=== PATIENT | male | born 1950 | race Caucasian/White ===

== ENCOUNTER 2021-08-04 10:48 | Inpatient (IN) | payer OTHER ==
[~2021-08-04] VITALS: Ht 182.9 cm; Wt 103.8 kg
[2021-08-04] VITALS (11 sets, daily range): BP systolic 113–141; BP diastolic 53–73
[~2021-08-04 10:48] MED LIST: ACETAMINOPHEN325 M1 PO; ADVIL FLU & BO1 EACH PO; BACTRIM DS TAB1 EACH PO; COLACE 100 MG100 MG PO; HYDROCODON-ACE1 EACH PO; OXYBUTYNIN 5 MG5 M1 PO; PROSED-DS TABL1 EACH PO
[2021-08-04] MEDS ORDERED: TESTOSTERO30 MG/1.5 BUCCAL (11:22)
[2021-08-04] MEDS ORDERED: FLOMAX0.4 MG PO (11:22)
[2021-08-04] MEDS ORDERED: DICLOFENAC SOD50 MG PO (11:23)
[2021-08-04] MEDS ORDERED: FLEXERIL PO (11:23)
[2021-08-04] MEDS ORDERED: ROPINIROLE HCL0.5 MG PO (11:23)
[2021-08-04 14:48] LABS: ABSOLUTE NEUTROPHILS 3.9 thou/uL (1.4-8.2); BASOPHILS 0.8 % (0.0-2.0); EOSINOPHILS 0.8 % (0.0-3.0); HEMATOCRIT 44.5 % (42.0-52.0); HEMOGLOBIN 14.5 gm/dL (14.0-18.0); LYMPHOCYTES 25.4 % (24.0-44.0); MCH 30.6 pg (26.0-34.0); MCHC 32.5 g/dL (28.0-37.0); MONOCYTES 11.8 % (1.0-8.0); PLATELET COUNT 217 thou/uL (150-400); POLYS 61.2 % (36.0-66.0); RBC 4.73 mil/uL (4.50-6.00); RDW 14.4 % (10.5-14.5); WBC 6.4 thou/uL (4.0-11.0)
[2021-08-04 14:56] LABS: CALCIUM 8.5 mg/dL (8.5-10.1); POTASSIUM 4.4 mmol/L (3.5-5.1)
[2021-08-04 15:02] LABS: ALBUMIN 3.2 g/dL (3.4-5.0); APTT 26.6 Seconds (24.5-32.8); INR 1.06; PROTIME 11.5 Seconds (10.5-12.1); TOTAL BILIRUBIN 0.8 mg/dL (0.2-1.0); TOTAL PROTEIN 6.5 g/dL (6.4-8.2)
[2021-08-04 15:48] LABS: URINE BILIRUBIN NEGATIVE (Negative); URINE BLOOD NEGATIVE (Negative); URINE CLARITY CLEAR; URINE COLOR YELLOW; URINE GLUCOSE-RANDOM* NEGATIVE (Negative); URINE KETONES NEGATIVE (Negative); URINE LEUKOCYTES-REFLEX NEGATIVE (Negative); URINE NITRITE-REFLEX NEGATIVE (Negative); URINE PROTEIN (DIPSTICK) NEGATIVE (Negative)
[2021-08-04] MEDS ORDERED: XANAX 0.25 MG0.25 MG PO (15:56)
[2021-08-05 00:45] VITALS: BP 113/75
--- NOTE | 2021-08-05 03:51 | NUR ---
assumed pt care at 1900, alert and orientedx4, sron tele, denies chest pain, assessments as charted, R.groin site cdi, no hematoma, verified with cardiology the need for heparin gtt, no new orders, plan for cabg on tuesday, mupirocin started after mrsa swab, no needs at this time will continue to monitor per poc
[2021-08-05 04:06] LABS: GLYCOHEMOGLOBIN (HGB A1C) 5.5 % (4.8-5.6)
[2021-08-05 04:45] VITALS: BP 132/72
[2021-08-05 07:07] VITALS: BP 138/72
--- NOTE | 2021-08-05 09:06 | 2DMMODE ---
[facility] [place] [place] [address] 2 D/M-MODE ECHOCARDIOGRAM Name: MERI COLON Room #: 200-I ADM IN M.R.#: [id number] Admission: 08/04/21 Attend Phys: Will Wolfe MD, Discharge: Date of : 48 Report #: [id number] THIS REPORT FOR: cc: Thanh Luque Damon DO Lundgren, Craig H. MD [facility] ~ APPROVED REPORT Study performed: 08/05/2021 08:03:58 EXAM: Comprehensive 2D, Doppler, and color-flow Echocardiogram Patient Location: Bedside Room #: 200 Status: routine BSA: 2.26 HR: 57 bpm BP: 132/72 mmHg Rhythm: NSR Other Information Study Quality: Fair Indications NSTEMI. Pre-Op CABG. 2D Dimensions IVSd: 10.24 (7-11mm) LVOT Diam: 23.25 (18-24mm) LVDd: 49.73 mm PWd: 9.48 (7-11mm) LVDs: 41.53 (25-40mm) Left Atrium: 37.31 (27-40mm) Aortic Root: 36.32 mm Volumes Left Atrial Volume (Systole) Single Plane 4CH: 30.64 mL Single Plane 2CH: 31.88 mL LA ESV Index: 16.00 mL/m2 Aortic Valve AoV Peak Tony.: 1.02 m/s AO Peak Gr.: 4.18 mmHg LVOT Max P.26 mmHg LVOT Max V: 0.90 m/s RUKHSANA Vmax: 3.75 cm2 [facility] [address] [place] [address] 2 D/M-MODE ECHOCARDIOGRAM Name: MERI COLON Room #: 200-I [facility] IN R#: [id number] Admission: 08/04/21 Attend Phys: Will Wolfe, Discharge: Date of : 48 Report #: [id number] Mitral Valve E/A Ratio: 0.8 MV Decel. Time: 263.69 ms MV E Max Tony.: 0.49 m/s MV A Tony.: 0.61 m/s MV PHT: 76.47 ms IVRT: 96.89 ms Tricuspid Valve RAP Estimate: 5.00 mmHg Left Ventricle The left ventricle is normal size. Mild basal septal hypertrophy is present. Left ventricular systolic function is moderately decreased. LVEF 40%. Mid to distal septal, apical hypokinesis Mild diastolic dysfunction Right Ventricle The right ventricle is normal size. The right ventricular systolic function is normal. Atria The left atrium size is normal. The right atrium size is normal. Aortic Valve The aortic valve is not well visualized. No aortic regurgitation is present. There is no aortic valvular stenosis. Mitral Valve The mitral valve is normal in structure. There is no mitral valve regurgitation noted. No evidence of mitral valve stenosis. Tricuspid Valve The tricuspid valve is normal in structure. There is no tricuspid valve regurgitation noted. Unable to assess PA pressure. Pulmonic Valve Pulmonic valve is not well visualized. There is no pulmonic valvular regurgitation. Great Vessels The aortic root is normal in size. Ascending aorta is not well visualized. IVC is normal in size and collapses >50% with inspiration. [facility] [place] [address] [place] [address] 2 D/M-MODE ECHOCARDIOGRAM Name: MERI COLON Room #: 200-I ADM IN .R.#: [id number] Admission: 08/04/21 Attend Phys: Will Wolfe, Discharge: Date of : 48 Report #: [id number] Pericardium There is no pericardial effusion. <Conclusion> Left ventricular systolic function is moderately decreased. LVEF 40%. Mid to distal septal, apical hypokinesis Mild diastolic dysfunction The aortic valve is not well visualized. No aortic regurgitation or stenosis The mitral valve is normal in structure. No mitral valve regurgitation Unable to assess pulmonary artery pressure. There is no pericardial effusion. <ELECTRONICALLY SIGNED> By: Connor Holliday MD, [facility] 08/05/21905 5 Connor Holliday MD, FACC /INF
[2021-08-05 11:05] VITALS: BP 124/72
[2021-08-05 11:41] LABS: CALCIUM 8.7 mg/dL (8.5-10.1); POTASSIUM 3.9 mmol/L (3.5-5.1)
[2021-08-05 12:04] LABS: CHOLESTEROL 198 mg/dL (<200); HDL CHOLESTEROL 35 mg/dL (>40); LDL CHOLESTEROL 140 mg/dL (<100); TC:HDL 5.7 Ratio (Not establshd); TRIGLYCERIDE 119 mg/dL (<150); VLDL 24 mg/dL (<40)
[2021-08-05 15:12] VITALS: BP 124/69
--- NOTE | 2021-08-05 18:29 | NUR ---
Pt A&0x4, VS stable and afebrile throughout shift. Pt had an episode of chest pain/tightness at 0900. Pt was given 2 SL nitroglycerine tablets and placed on 2L O2. Nitorglycerine patch was ordered and applied to pts chest. Pt has been resting comfortably in bed for remainder of shift. Pt spoke with Dr. Mccallum and Jose in AM and discussed plan for open heart surgery on Tuesday. Pt's mynx dressing is clean dry and intact without hematoma. No concerns at the moment. Will continue to monitor.
[2021-08-05 20:31] VITALS: BP 123/64
[2021-08-06 05:33] VITALS: BP 133/72
--- NOTE | 2021-08-06 06:53 | NUR ---
ASSUME CARE 1900. PT/VITALS STABLE. DENEIS ANY PAIN. GOOD TOLERANCE TO ACTIVITY. ASSESSMENT CHARTED. PROGRESSING WELL WITH POC. NO DISTRESS NOTED THROUGH THE NIGHT. SR ON MONITOR. PLAN IS CABG ON Tuesday08/07/21. WILL CONITNUE TO MONITOR AND FOLLOW WITH POC
[2021-08-06 08:34] VITALS: BP 126/59
[2021-08-06 12:00] VITALS: BP 107/64
--- NOTE | 2021-08-06 13:02 | EKG ---
[address] [address] ELECTROCARDIOGRAM REPORT Name: MERI COLON Room #: 200-I ADM IN M.R.#: [id number] Admission: 08/04/21 Attend Phys: Will Wolfe MD, Discharge: Date of : 48 Report #: [id number] [facility] Test Date: 2021-08-06 Test Time: 10:16:58 Pat Name: MERI COLON Department: Room: 200 I Gender: M Calibration Technician: ELIZABETH : 1950 Requested By: Will Wolfe Order Number: [id number] MD: Reyes Carroll Measurements Intervals [place] Rate: 71 P: 36 IL: 186 QRS: 32 QRSD: 96 T: 110 QT: 399 QTc: 434 Interpretive Statements Sinus rhythm Repol abnrm suggests ischemia, anterolateral No previous ECG available for comparison Electronically Signed On 08-06-2021 13:02:07 POULTRY FARM WORKER by Reyes Carroll [email or web address] <ELECTRONICALLY SIGNED> By: Reyes Carroll MD, [facility] 08/06/[address] [facility] Reyes Carroll MD, FAC /EPI
--- NOTE | 2021-08-06 14:27 | HC ---
[facility] [place] [place] [address] CONSULTATION Name: MERI COLON Room #: 200-I ADM IN M.R.#: [id number] Admission: 08/04/21 Attend Phys: Will Wolfe MD, Discharge: Date of : 48 Report #: [id number] THIS REPORT FOR: cc: Thanh Luque,Thanh Hankins,Rich Lovell MD ~ DATE OF SERVICE: 08/04/2021 We were asked by Dr. Wolfe to see the patient. HISTORY OF PRESENT ILLNESS: The patient is a 70-year-old with coronary artery disease. The patient presents with unstable angina at home. Cardiac catheterization demonstrates severe 3-vessel disease including 50% left main and serial 90% lesions in the LAD, 60% circumflex, and 70% right coronary stenosis. Left ventricular function is satisfactory overall with some anterior hypokinesis. PAST MEDICAL HISTORY: Significant for hypertension and dyslipidemia. The patient has had gallbladder surgery in the past. HOME MEDICATIONS: Includes oxybutynin and Bactrim for prostatitis in the past. SOCIAL HISTORY: The patient lives in [facility]. He is . He is an ex-marine. Former cigarette smoker, quit over 20 years ago. REVIEW OF SYSTEMS: GENERAL: No fever or chills. EYES: No vision change. HEENT: No headache, hearing problems, sinus problems. CARDIAC: As mentioned, chest pain with exertion that became chest pain at rest over the weekend. No particular shortness of breath. RESPIRATORY: No hemoptysis, no cough. GASTROINTESTINAL: No nausea, vomiting, diarrhea. GENITOURINARY: No urgency, frequency, blood. MUSCULOSKELETAL: No bone or joint pain. SKIN: No rash or infection. NEUROLOGIC: No motor or sensory dysfunction. Overall, although the patient did say he had some left sided numbness with the chest discomfort. SKIN: No rash or infection. ENDOCRINE: No goiter, no tremor. HEMATOLOGIC: No bruisability or bleeding. ALLERGIES: THE PATIENT CLAIMS TO BE ALLERGIC TO ATORVASTATIN, WHICH CAUSES MUSCLE ACHES. PHYSICAL EXAMINATION: [facility] [address] [place] [address] CONSULTATION Name: MERI COLON Room #: 200-I [facility] IN .R.#: [id number] Admission: 08/04/21 Attend Phys: Will Wolfe MD, Discharge: Date of : 48 Report #: [id number] GENERAL: The patient is in bed, seemingly comfortable. VITAL SIGNS: Temperature 36.6, heart rate 66, respiratory rate 18, blood pressure 141/53, O2 sat 97% on room air. HEENT: No scleral icterus. No arcus. NECK: No mass, no bruit. CHEST: Clear to auscultation. HEART: Rhythm regular, no murmur. ABDOMEN: Soft. EXTREMITIES: No clubbing, cyanosis or edema. SKIN: No rash or infection. NEUROLOGIC: No motor or sensory dysfunction. VASCULAR: 2+ posterior tibial pulses bilaterally. No obvious saphenous vein problems. PSYCHIATRIC: Shows insight into problem and is oriented x 3. ASSESSMENT AND PLAN: The patient has important 3-vessel coronary artery disease with reasonable ventricular function. I have recommended coronary artery bypass surgery. Risks and details were discussed. These include but are not limited to bleeding, infection, anesthesia risks, heart and lung problems, stroke and . The patient understands all of this and wishes to proceed. We will schedule surgery for Tuesday this week. Thank you for the consult. <ELECTRONICALLY SIGNED> By: Rich Olmedo MD 08/06/21 1427 1538 0114 Rich Olmedo MD /nt
[2021-08-06 15:55] VITALS: BP 109/56
--- NOTE | 2021-08-06 16:51 | NUR ---
Met with patient and at bedside. patient transferred to [facility] from [facility]. Patient admits with CP with planned CABG in am. Patient resides with in independent home. All needs on one level. Patient independent with adls bellhop service captain. he was in process of building a deck on home. Patient cont to drive. Discussed dc planning. Discussed with dme coverage. Casemgt following
--- NOTE | 2021-08-06 17:15 | CATHLAB ---
[facility] [place] [address] INVASIVE PROCEDURE REPORT Name: MERI COLON Room #: 200-I ADM IN M.R.#: [id number] Admission: 08/04/21 Attend Phys: Will Wolfe MD, Discharge: Date of : 48 Report #: [id number] THIS REPORT FOR: cc: Thanh Luque Damon DO Mancuso, Gerald M. MD [facility] ~ APPROVED REPORT Study performed: 08/04/2021 11:24:27 Patient Details Patient Status: ED Room #: The patient is a 70 year-old male Event Personnel Will Wolfe Professor Of Special Education, Rocio Benoit RN RN, Hoa Ham Paschal, Ja'net RTR Monitor Procedures Performed Left Heart Cath w/or w/o Coronaries 5569991 [facility] Art Access - R femoral artery* Aortogram Abdominal Peripheral Angio 801036 Hemostasis w/ Mynx 20865 Initial Mod Sed Same Phys/QHP Gr5y 130163 Indication Chest pain Procedure Narrative The patient was brought emergently to the Cardiac Catheterization Laboratory and was prepped and draped in a sterile manner. The Right Groin^ was infiltrated with 1% Lidocaine subcutaneous anesthesia. A PINNACLE 6FR Sheath #[id number] sheath was inserted into the RFA^. Coronary angiography was performed using coronary diagnostic catheters. The right coronary system was accessed and visualized with a JR4 catheter. The left coronary system was accessed and visualized with a JL4 catheter. The left ventricle was accessed and visualized with a PIGTAIL catheter. An aortogram of the abdominal aorta was performed. Closure device was deployed with a Fr MYNXGRIP 6/7F #[id number]. The patient tolerated the procedure well and there were no complications associated with the procedure. There was no hematoma. Intraoperative Conscious Sedation Sedation start time: 12:34 Case end Time: [facility] [address] [place] [address] [place] [address] INVASIVE PROCEDURE REPORT Name: DARLENEMERI Denis Room #: 200-I [facility] IN .R.#: [id number] Admission: 08/04/21 Attend Phys: Will ReyezBecca Yaneth, Discharge: Date of : 48 Report #: [id number] 13:02 Versed 2 mg Fluoro Time: 1.50 minutes Dose: DAP 6824.80 cGycm2 870 mGy Contrast Type and Amount: Omnipaque 110 ml Hemodynamics The aortic pressure is 131/56 mmHg with a mean of 83 mmHg. The left ventricular pressure is 131/11 mmHg with a mean of mmHg. The left ventricular end diastolic pressure is 27 mmHg. Conclusion #1 Normal left ventricular size with mild hypokinesis of the anterior apical wall EF 45% range. #2 left main mildly disease ostial and distal left main's have 30 to 40% lesions giving rise to LAD and circumflex. #3 LAD is high-grade multiple areas of subtotaled lesions. Proximal and mid vessel. With portions of choroidopathy or dilatations between the stenosis. Brisk flow is noted but a high-grade lesion in proximal mid and mid distal. The distal third is preserved which extends well around the apex. #4 diagonal system which is large from the LAD has mild disease. #5 circumflex OM ostial lesion of 40% nondominant moderate distribution of the circumflex OM branch. #6 dominant right coronary artery with an eccentric 70% proximal lesion followed by area of choroidopathy irregularity and then a well-preserved distal half of this vessel with the PDA CORDELL well preserved. #7 abdominal aortogram has mild aortic ectasia but no aneurysm formation. Recommendations and plan: Continue aggressive risk factor modification. Patient in need of revascularization not amenable to percutaneous stenting procedure. Bypass recommended. CV surgical consultation. Transfer to CCU to follow post cath protocol hemodynamically stable and pain-free. With complete revascularization expect improvement of anterior apical wall. <ELECTRONICALLY SIGNED> By: Will Wolfe MD, FACC 08/06/211714 14 14 Will Wolfe MD, FACC /INF
--- NOTE | 2021-08-06 18:29 | NUR ---
PATIENT ASSESMENTS COMPLETED AND CHARTED. PATIENT HAD ONE OCCURANCE OF CHEST PAIN IN THE MORNING AND WE PLACED A NITRO PATCH. NO COMPLAINTS SINCE. PATIENT SHOWERED AND TRIMMED MARTINEZ. PLAN FOR CABG TOMORROW.
[2021-08-06 19:23] VITALS: BP 116/48
[2021-08-06 23:56] VITALS: BP 114/55
[2021-08-07] VITALS (28 sets, daily range): BP systolic 106–148; BP diastolic 52–77
--- NOTE | 2021-08-07 05:09 | NUR ---
PATIENTS CARES WHERE ASSUMED AT SHIFT CHANGE. PATIENT WAS ASSESSED AND MEDS WERE PASSED. PATIENT WAS MADE READY FOR HIS HEART PROCEDURE. DAILY WEIGHT WAS DONE ON A STANDING SCALE. CLEANSING WITH CHLOROHEXADINE. ROUNDS WHERE DONE. THE BED IS IN A LOW AND LOCKED POSITION. VS REMAIN STABLE THROUGH THE NIGHT PATIENT DOES DAVID WHILE A SLEEP IN TO LOW 40'S.
[2021-08-07 13:01] LABS: MCH 31.7 pg (26.0-34.0); MCHC 34.1 g/dL (28.0-37.0); RBC 3.33 mil/uL (4.50-6.00); RDW 13.7 % (10.5-14.5); WBC 7.8 thou/uL (4.0-11.0)
[2021-08-07 13:03] LABS: HEMOGLOBIN 10.6 gm/dL (14.0-18.0)
[2021-08-07 13:16] LABS: APTT 27.2 Seconds (24.5-32.8); INR 1.47
[2021-08-07 13:19] LABS: PROTIME 15.7 Seconds (10.5-12.1)
[2021-08-07 14:04] LABS: POC BE 1 mmol/L (-2.0 to +3.0); POC CA IONIZED 4.9 mg/dL (4.5-5.3); POC GLUCOSE 103 mg/dL (70-99); POC HCO3 25.3 mmol/L (22.0-26.0); POC HEMOGLOBIN 12.9 g/dL (14.0-18.0); POC POTASSIUM 4.2 mmol/L (3.5-5.1); POC SODIUM 139 mmol/L (136-145); POC pCO2 39.4 mmHg (35.0-45.0); POC pH 7.416 (7.360-7.450)
[2021-08-07 14:04] LABS: POC BE 0 mmol/L (-2.0 to +3.0); POC CA IONIZED 4.8 mg/dL (4.5-5.3); POC GLUCOSE 151 mg/dL (70-99); POC HCO3 26.3 mmol/L (22.0-26.0); POC HEMOGLOBIN 10.5 g/dL (14.0-18.0); POC POTASSIUM 4.4 mmol/L (3.5-5.1); POC SODIUM 138 mmol/L (136-145); POC pCO2 55.2 mmHg (35.0-45.0); POC pH 7.286 (7.360-7.450)
[2021-08-07 14:04] LABS: POC BE -1 mmol/L (-2.0 to +3.0); POC CA IONIZED 4.8 mg/dL (4.5-5.3); POC GLUCOSE 111 mg/dL (70-99); POC HCO3 23.2 mmol/L (22.0-26.0); POC HEMOGLOBIN 12.6 g/dL (14.0-18.0); POC POTASSIUM 3.9 mmol/L (3.5-5.1); POC SODIUM 138 mmol/L (136-145); POC pCO2 36.3 mmHg (35.0-45.0); POC pH 7.412 (7.360-7.450)
[2021-08-07 14:04] LABS: POC BE -2 mmol/L (-2.0 to +3.0); POC CA IONIZED 4.5 mg/dL (4.5-5.3); POC GLUCOSE 144 mg/dL (70-99); POC HCO3 23.6 mmol/L (22.0-26.0); POC HEMOGLOBIN 11.2 g/dL (14.0-18.0); POC POTASSIUM 4.6 mmol/L (3.5-5.1); POC SODIUM 136 mmol/L (136-145); POC pCO2 43.2 mmHg (35.0-45.0); POC pH 7.345 (7.360-7.450)
[2021-08-07 14:04] LABS: POC BE -4 mmol/L (-2.0 to +3.0); POC CA IONIZED 4.8 mg/dL (4.5-5.3); POC GLUCOSE 139 mg/dL (70-99); POC HCO3 21.6 mmol/L (22.0-26.0); POC HEMOGLOBIN 11.2 g/dL (14.0-18.0); POC POTASSIUM 4.1 mmol/L (3.5-5.1); POC SODIUM 141 mmol/L (136-145); POC pCO2 37.6 mmHg (35.0-45.0); POC pH 7.367 (7.360-7.450)
[2021-08-07 14:04] LABS: POC BE -3 mmol/L (-2.0 to +3.0); POC CA IONIZED 4.7 mg/dL (4.5-5.3); POC GLUCOSE 117 mg/dL (70-99); POC HCO3 23.3 mmol/L (22.0-26.0); POC HEMOGLOBIN 11.2 g/dL (14.0-18.0); POC POTASSIUM 4.2 mmol/L (3.5-5.1); POC SODIUM 138 mmol/L (136-145); POC pCO2 45.7 mmHg (35.0-45.0); POC pH 7.316 (7.360-7.450)
[2021-08-07 14:04] LABS: POC BE -2 mmol/L (-2.0 to +3.0); POC CA IONIZED 5.3 mg/dL (4.5-5.3); POC GLUCOSE 136 mg/dL (70-99); POC HCO3 23.3 mmol/L (22.0-26.0); POC HEMOGLOBIN 10.9 g/dL (14.0-18.0); POC POTASSIUM 4.1 mmol/L (3.5-5.1); POC SODIUM 138 mmol/L (136-145); POC pCO2 38.3 mmHg (35.0-45.0); POC pH 7.393 (7.360-7.450)
[2021-08-07 14:04] LABS: POC BE -2 mmol/L (-2.0 to +3.0); POC CA IONIZED 4.5 mg/dL (4.5-5.3); POC GLUCOSE 160 mg/dL (70-99); POC HCO3 23.3 mmol/L (22.0-26.0); POC HEMOGLOBIN 11.2 g/dL (14.0-18.0); POC POTASSIUM 4.6 mmol/L (3.5-5.1); POC SODIUM 138 mmol/L (136-145); POC pCO2 41.1 mmHg (35.0-45.0); POC pH 7.362 (7.360-7.450)
--- NOTE | 2021-08-07 14:30 | NUR ---
Admitted from surgery acc by Anes and surgery personnel. Pt sedated. No pressors on. Monitor shows nsr w occ PVC. waveforms WNL,DR Olmedo and Jose at the bedside. All chest tubes and foeley intact and draining. Monitoring closely. See CCFS for parameters.
[2021-08-07 14:50] LABS: HEMOGLOBIN 11.8 gm/dL (14.0-18.0); MCH 30.6 pg (26.0-34.0); MCHC 32.7 g/dL (28.0-37.0); MCV 93.7 fL (80.0-100.0); RBC 3.84 mil/uL (4.50-6.00); WBC 18.1 thou/uL (4.0-11.0)
[2021-08-07 14:58] LABS: CALCIUM 8.5 mg/dL (8.5-10.1); CREATININE 1.1 mg/dL (0.7-1.3); MAGNESIUM 2.2 mg/dL (1.8-2.4); POTASSIUM 4.5 mmol/L (3.5-5.1)
[2021-08-07 15:18] LABS: APTT 26.9 Seconds (24.5-32.8); INR 1.14; PROTIME 12.4 Seconds (10.5-12.1)
--- NOTE | 2021-08-07 15:30 | NUR ---
EKG done. Dr Olmedo here to see.
[2021-08-07 15:45] LABS: BE(vivo) -6.9 mmol/L (-2 to +3); HCO3 18.3 mmol/L (22.0-26.0); PCO2 35.5 mmHg (35.0-45.0); PO2 78.2 mmHg (80.0-100.0); pH 7.329 (7.360-7.450); sO2 94.9 % (92.0-98.0)
--- NOTE | 2021-08-07 16:30 | NUR ---
Pt placed on cpap for awhile he did really well but did not pass his RT parameters. Will try again soon.
[2021-08-07 18:37] LABS: CALCIUM 8.5 mg/dL (8.5-10.1); CREATININE 1.1 mg/dL (0.7-1.3); POTASSIUM 4.5 mmol/L (3.5-5.1)
--- NOTE | 2021-08-07 18:45 | NUR ---
Dr Olmedo here to see updated on all parameters. Will cont to monitor.
--- NOTE | 2021-08-07 19:00 | NUR ---
RT here pt on Cpap again encouraged to try to follow instructions so he can get off the Ventilator.
[2021-08-07 19:48] LABS: BE(vivo) -3.1 mmol/L (-2 to +3); HCO3 21.9 mmol/L (22.0-26.0); PCO2 38.9 mmHg (35.0-45.0); PO2 85.3 mmHg (80.0-100.0); pH 7.368 (7.360-7.450); sO2 96.2 % (92.0-98.0)
--- NOTE | 2021-08-07 20:08 | NUR ---
Call to Dr Olmedo to report ABG's. Planid to pull ETT. RT aware. Report given to oncoming RN.
--- NOTE | 2021-08-07 23:47 | NUR ---
ASSUMED CARE OF PT AT 1900. PT EXTUBATED PER DR STYLES'S ORDERS AT 2013. PT COMPLAINING OF PAIN S/P EXTUBATION. PT EDUCATED ON PAIN MED MANAGMENT AND REGIMEN. WILL CONTINUE TO MONITOR.
[2021-08-08] VITALS: BP 117/61
[2021-08-08 01:00] VITALS: BP 118/63
[2021-08-08 02:00] VITALS: BP 127/65
[2021-08-08 03:00] VITALS: BP 120/66
[2021-08-08 04:00] VITALS: BP 117/64
[2021-08-08 04:21] LABS: HEMATOCRIT 34.8 % (42.0-52.0); HEMOGLOBIN 11.5 gm/dL (14.0-18.0); MCH 31.2 pg (26.0-34.0); MCHC 33.1 g/dL (28.0-37.0); MCV 94.3 fL (80.0-100.0); RBC 3.7 mil/uL (4.50-6.00); RDW 14.2 % (10.5-14.5); WBC 12.1 thou/uL (4.0-11.0)
[2021-08-08 04:32] LABS: INR 1.08; PROTIME 11.7 Seconds (10.5-12.1)
[2021-08-08 04:45] LABS: CALCIUM 8.5 mg/dL (8.5-10.1); MAGNESIUM 2.2 mg/dL (1.8-2.4); POTASSIUM 4.6 mmol/L (3.5-5.1)
--- NOTE | 2021-08-08 12:01 | EKG ---
[address] [place] [address] ELECTROCARDIOGRAM REPORT Name: MERI COLON Room #: 249-P ADM IN M.R.#: [id number] Admission: 08/04/21 Attend Phys: Will Wolfe MD, Discharge: Date of : 48 Report #: [id number] [facility] Test Date: 2021-08-07 Test Time: 15:37:02 Pat Name: MERI COLON Department: Room: 249 Gender: M Food Broker: FSCHWALBE : 1950 Requested By: Andre Mackay Order Number: [id number] MD: Connor Holliday Measurements Intervals [place] Rate: 79 P: 40 MI: 183 QRS: 62 QRSD: 86 T: 80 QT: 387 QTc: 444 Interpretive Statements Sinus rhythm Minimal ST elevation, inferior leads Compared to ECG 08/06/2021 10:16:58 Anterior T wave abnormality no longer present Electronically Signed On 08-08-2021 12:01:10 GEOPHYSICAL OBSERVER by Connor Holliday [email or web address] <ELECTRONICALLY SIGNED> By: Connor Holliday MD, [facility] 08/08/21 1201 36 36 Connor Holliday MD, [facility] /EPI
--- NOTE | 2021-08-08 12:08 | EKG ---
[address] [place] [address] ELECTROCARDIOGRAM REPORT Name: MERI COLON Room #: 249-P ADM IN M.R.#: [id number] Admission: 08/04/21 Attend Phys: iWll Wolfe MD, Discharge: Date of : 48 Report #: [id number] [facility] Test Date: 2021-08-08 Test Time: 08:02:16 Pat Name: MERI COLON Department: Room: 249 P Gender: M Health And Physical Education Professor: : 1950 Requested By: Andre Mackay Order Number: [id number] MD: Connor Holliday Measurements Intervals [place] Rate: 70 P: 27 GA: 158 QRS: 3 QRSD: 89 T: 72 QT: 389 QTc: 420 Interpretive Statements Sinus rhythm Nonspecific T abnrm, anterolateral leads Repolarization abnormality Compared to ECG 08/07/2021 15:37:02 Repolarization abnormality is now present Electronically Signed On 08-08-2021 12:08:13 DRILLER HAND by Connor Holliday [email or web address] <ELECTRONICALLY SIGNED> By: Connor Holliday MD, [facility] 08/08/21 1208 1 1 Connor Holliday MD, [facility] /EPI
--- NOTE | 2021-08-08 17:03 | O ---
[facility] [place] [address] OPERATIVE REPORT Name: MERI COLON Room #: 249-P ADM IN M.R.#: [id number] Admission: 08/04/21 Attend Phys: Will Wolfe MD, Discharge: Date of : 48 Report #: [id number] THIS REPORT FOR: cc: Thanh Luque,Thanh Hankins,Rich Lovell MD ~ DATE OF SERVICE: 08/07/2021 PREOPERATIVE DIAGNOSIS: Coronary artery disease. POSTOPERATIVE DIAGNOSIS: Coronary artery disease. OPERATION: Coronary artery bypass x4 including left internal mammary artery to left anterior descending artery, saphenous vein to diagonal and marginal arteries and saphenous vein to posterior descending artery and endoscopic harvest, left greater saphenous vein, and placement of left femoral arterial line. SURGEON: Rich Olmedo MD CHALK EXTRUDING MACHINE OPERATOR: WERO Beltran. ANESTHESIA: General. INDICATIONS: The patient is a 70-year-old seen for Dr. Wolfe. The patient has a non-STEMI with severe 3-vessel coronary artery disease. In particular, there are serial 90% lesions in the LAD and a 50% left main. Left ventricular function is reduced with anterior hypokinesis. FINDINGS AND TECHNIQUE: After general anesthesia was established, saphenous vein was harvested using an endoscopic approach and prepared for use as a conduit. Exposure was prepared through median sternotomy. Left internal mammary artery was harvested. Pericardial well was made. Cannulation sutures were placed. Heparin was given. Aorta was cannulated. Right atrium was cannulated. Cardioplegia needle was positioned in the aortic root. Prior to beginning cardiopulmonary bypass, the arterial line was not sufficiently functional and a left femoral arterial line was placed using Seldinger technique. Once a good arterial line access had been achieved, cardiopulmonary bypass was established. Aorta was cross clamped. Antegrade and retrograde cardioplegia were given. Ice was poured into the pericardial well. The heart was stopped. During electromechanical arrest, the distal anastomoses were performed. An end-to-side anastomosis was made between vein and the posterior descending [facility] [address] [place] [address] OPERATIVE REPORT Name: MERI COLON Room #: 249-P [facility] IN M.R.#: [id number] Admission: 08/04/21 Attend Phys: Will Wolfe MD, Discharge: Date of : 48 Report #: [id number] artery. Cold cardioplegia was given. Separate segment of vein was sewn in end-to-side fashion to the large first marginal artery. Cold cardioplegia was given. The same segment of vein was sewn in end-to-side fashion to the diagonal artery. Cold cardioplegia was given. Left internal mammary artery was sewn in end-to-side fashion to the left anterior descending artery. Patency of this vessel was checked with the temperature technique. Cold cardioplegia was given. Two proximal anastomoses were performed. When these were complete, warm retrograde cardioplegia was given followed by warm continuous blood to the coronary sinus. When this infusion was complete, the crossclamp was removed. De-airing maneuvers were performed. The anastomoses were inspected and found to be satisfactory. As the patient warmed, nice cardiac activity resumed, chest tubes and pacing wires were placed. A marker was placed around the proximal anastomoses. When the patient was warm, she was weaned from cardiopulmonary bypass. Venous cannula was removed. Protamine was given, the aortic cannula was removed. When hemostasis was satisfactory, chest was irrigated with antibiotic solution and closed in the usual fashion. The patient was taken to the Intensive Care Unit in good condition having tolerated the procedure well. All counts were reported as correct. <ELECTRONICALLY SIGNED> By: Rich Olmedo MD 08/08/21 1703 1526 1801 Rich Olmedo MD /nt
[2021-08-09 03:53] LABS: HEMATOCRIT 28.1 % (42.0-52.0); HEMOGLOBIN 9.6 gm/dL (14.0-18.0); MCH 31.8 pg (26.0-34.0); MCHC 34.1 g/dL (28.0-37.0); MCV 93.1 fL (80.0-100.0); RBC 3.02 mil/uL (4.50-6.00); RDW 14.2 % (10.5-14.5); WBC 11.4 thou/uL (4.0-11.0)
[2021-08-09 09:14] LABS: CALCIUM 8.5 mg/dL (8.5-10.1); POTASSIUM 4.2 mmol/L (3.5-5.1)
--- NOTE | 2021-08-09 14:59 | NUR ---
Left Pleural Chest tube taken out by WERO Garcia. Hicks out and Right radial art line out prior to transfer to CCU. Pt is post voidal from removal of hicks catheter. Pt's right introducer was taken out prior to transfer to CCU. Report given to OMARI Patton. Pt transferred to CCU ROOM 214 via recliner accompanied by two RNs. at bedside during transfer and walked with us to CCU. Pt progressing well towards the plan of care.
--- NOTE | 2021-08-09 15:25 | NUR ---
PATIENT ARRIVED TO UNIT. VITALS TAKEN - BLOOD PRESSURE 78/[address] URIBE NOTIFIED AND ADVISED IT WAS OKAY WITHOUT OTHER SYSTEMS.
[2021-08-09 15:37] VITALS: BP 78/37
--- NOTE | 2021-08-09 17:44 | NUR ---
PATIENT ASSESMENT CHARTED. PATIENT STABLE AND COMFORTABLE IN RECLINER WITH AT BEDSIDE.
[2021-08-09 20:09] VITALS: BP 93/48
--- NOTE | 2021-08-10 02:49 | NUR ---
PT BEEN RESTING IN NO ACUTE DISTRESS.A/OX4.VSS.S/P CABGX4.VSS.TYLENOL IV ADMINISTERED PER ORDERS.UP TO BSC WITH ASSISTXI.ENCOURAGED WITH IS,ABLE TO PULL UPTO 1500.O2 AT 2LITERS PNC.NOTED SOB W/EXERTION. DENIES PAIN.STERNAL INCISIONS WITH AB DRESSING,CDI.LEFT LEG HARVEST SITE COVERED W/DRESSING CDI.ASSESSMENT COMPLETED DOCUMENTED.NO CONCERNS REPORTED OR NOTED.
--- NOTE | 2021-08-10 05:16 | NUR ---
PT RHYTHM CHANGED FROM SR TO AFIB,EKG WAS COMPLETE REVEALING AFIB WITH HR RANGING FROM 90S TO LOW 110S.PT IS ASYMPTOMATIC,DENIES CHEST PAIN,PALPITATION OR INCREASED SHORTNESS OF BREATH.DR URIBE CONTACTED,INSTRUCTED TO CONTINUE WITH PO AMIODARONE 400MG ORDERED.PT UPDATED ON HIS POC.NO CONCERNS VOICED.
[2021-08-10 05:22] VITALS: BP 106/56
--- NOTE | 2021-08-10 07:40 | EKG ---
[address] [address] ELECTROCARDIOGRAM REPORT Name: MERI COLON Room #: 214-P ADM IN M.R.#: [id number] Admission: 08/04/21 Attend Phys: Will Wolfe MD, Discharge: Date of : 48 Report #: [id number] [facility] Test Date: 2021-08-10 Test Time: 05:01:19 Pat Name: MERI COLON Department: Room: 214 P Gender: M Piano Professor: BARBIE : 1950 Requested By: Will Wolfe Order Number: [id number] : Reyes Carroll Measurements Intervals [place] Rate: 87 P: IL: QRS: 18 QRSD: 93 T: 58 QT: 461 QTc: 555 Interpretive Statements Atrial fibrillation Compared to ECG 08/10/2021 04:59:22 No significant changes Electronically Signed On 08-10-2021 7:40:34 FREIGHT CHECKER by Reyes Carroll [email or web address] <ELECTRONICALLY SIGNED> By: Reyes Carroll MD, [facility] 08/10/21 0740 0501 0501 Reyes Carroll MD, FACC /EPI
[2021-08-10 07:44] VITALS: BP 108/61
[2021-08-10 11:15] VITALS: BP 105/61
[2021-08-10 15:30] VITALS: BP 106/54
--- NOTE | 2021-08-10 15:31 | NUR ---
MIDLINE INSERTION NOTE PT VERBALLY CONSENTED TO PROCEDURE. 1% LIDOCAINE GIVEN FOR LOCAL. 4FR ANGIODYNAMIC MIDLINE INSERTED IN L BRACHIAL VEIN. 17CM TOTAL LENTH, 2CM EXTERNAL. GUIDEWIRE REMOVED AND INTACT. PT TOLERATED PROCEDURE WELL. MIDLINE GOOD TO USE.
[2021-08-10 20:00] VITALS: BP 118/56
[2021-08-11] VITALS (7 sets, daily range): BP systolic 93–130; BP diastolic 45–65
--- NOTE | 2021-08-11 02:56 | NUR ---
PT IS ALERT AND ORIENTED X4. LUNGS ARE CLEAR. ON 3 LITERS NASAL CANULA. WATCHING TV THIS EVENING. AB DRESSSING TO MIDSTERNUMB NOTED. UP TO BATHROOM WITH ASSSIT X1. USESE HEART PILLOW. USES HIS INCENTIVE SPIROTOMETRY. ABDOMEN SOFT. BOWEL SOUNDS ACTIVE X4. SCDS ON BILATERAL. CALLL LIGHT WITHIN REACH IF NEEDS ONGOING NURSING CARE NEEDED PER PT. TO PROVIDE
--- NOTE | 2021-08-11 11:28 | NUR ---
LOS note: pt S/P NSTEMI, CABG x 4. Eating well, 50-100% of meals on heart healthy diet. BMI 31.5, obesity class 1. BM 08/10. A1C 5.5. Unable to visit with pt due to multiple disciples in room this morning. Follow for education needs. Place as low nutrition risk for now.
[2021-08-11 15:32] LABS: HEMATOCRIT 26.4 % (42.0-52.0); HEMOGLOBIN 8.9 gm/dL (14.0-18.0); MCH 31.4 pg (26.0-34.0); MCHC 33.7 g/dL (28.0-37.0); MCV 93.1 fL (80.0-100.0); RBC 2.84 mil/uL (4.50-6.00)
[2021-08-11 15:42] LABS: CALCIUM 8.5 mg/dL (8.5-10.1); CREATININE 1.1 mg/dL (0.7-1.3); POTASSIUM 3.9 mmol/L (3.5-5.1)
--- NOTE | 2021-08-11 18:43 | NUR ---
PT SAT IN CHAIR MOST OF THE SHIFT, PT/OT WORKED WITH PATIENT ASSISTED HIM INTO THE SHOWER. AB DRESSING REPLACED. PT DENIED PAIN THROUGHOUT THE SHIFT. SPOUSE REMIANED AT BEDSIDE THROUGHOUT, PATIENT USED TOILET SEVERAL TIMES. PT USED THE TOILET WITHOUT STAFF ASSISTANCE AND URINE OUTPUT WAS NOT MEASURED. EXPLAINED TO PATIENT THE IMPORTANCE OF THE MEASUREMENT. PT STATED HE URINATED APPROXIMATELY THE SAME EACH TIME. ONE OUTPUT WAS MEASURED AT 200ML GIVING AN APPROXIMATE OUTPUT OF 800. PT HAD ONE SMALL BOWEL MOVEMENT.
--- NOTE | 2021-08-12 03:10 | NUR ---
PT IS ALERT AND ORIENTED X4. LUNGS CLEAR TO DIMINIHSED. HAS A AB DRESSING TO STERNUM. DRY INTACT. ABDOMEN IS ROUND BOWEL SOUNDS ACTIVE X4. WAS AT BEDSIDE VISITING THIS EVENING. DENIES ANY COMPLAINTS OF PAIN NOTED.STABLE ON FEET WITH HEART PILLOW. USES INCENTIVE SPIROETRY UP TO 2.0. LEFT DRESSING ON LEG DRY AND INTACT. CALLL LIGHT WITHIN REACH IF NEEDS ASISSTANCE PER NURSING
[2021-08-12 05:09] VITALS: BP 114/43
[2021-08-12 07:30] VITALS: BP 108/48
--- NOTE | 2021-08-12 07:50 | EKG ---
[address] [employer] [place] [address] ELECTROCARDIOGRAM REPORT Name: MERI COLON Room #: 214-P ADM IN M.R.#: [id number] Admission: 08/04/21 Attend Phys: Will Wolfe MD, Discharge: Date of : 48 Report #: [id number] [facility] Test Date: 2021-08-11 Test Time: 15:18:31 Pat Name: MERI COLON Department: Room: 214 P Gender: M Grocery Manager: ELIZABETH : 1950 Requested By: Andre Mackay Order Number: [id number] MD: Connor Holliday Measurements Intervals [place] Rate: 61 P: 52 CO: 172 QRS: 25 QRSD: 90 T: 63 QT: 527 QTc: 531 Interpretive Statements Sinus rhythm Minimal ST elevation, inferior leads Prolonged QT interval Compared to ECG 08/10/2021 05:01:19 Prolonged QT interval now present Atrial fibrillation no longer present Electronically Signed On 08-12-2021 7:50:11 [employer] by Connor Holliday [email or web address] <ELECTRONICALLY SIGNED> By: Connor Holliday MD, [facility] 08/12/21 0750 [id number] Connor Holliday MD, [facility] /EPI
[2021-08-12] MEDS ORDERED: CARVEDILOL3.125 MG PO (08:07)
[2021-08-12] MEDS ORDERED: BAYER CHEWABLE81 MG PO (08:07)
[2021-08-12] MEDS ORDERED: PACERONE 200 M200 M1 PO (08:07)
[2021-08-12] MEDS ORDERED: FERREX 150 PLU1 EAC1 PO (08:07)
[2021-08-12] MEDS ORDERED: CRESTOR20 MG PO (08:10)
[2021-08-12 11:40] VITALS: BP 103/42
[2021-08-12 12:46] VITALS: BP 103/42
[2021-08-12 13:23] VITALS: BP 103/42
[2021-08-12 13:57] VITALS: BP 103/42
--- NOTE | 2021-08-12 15:17 | NUR ---
Patient to dc home with f/u outpatient care. Therapy reports patient does not need a walker for home. no further needs
== END 2021-08-12 16:03 | disposition home or self-care (01) | DRG 233 ==
LOC: CATH 10:48 → ICU 12:56 → 2N 12:56 → TBA 08-07 07:15 → ICU 08-07 13:49 → 2N 08-09 14:49
PROVIDERS: Nurse Practitioner; Physician Assistant; Surgery Vascular Surgery; ADMIT Internal Medicine Cardiovascular Disease; ATTEND Internal Medicine Cardiovascular Disease
PROC: 4A023N7 Measurement of Cardiac Sampling and Pressure, Left Heart, Percutaneous Approach (ICD-10-PCS; principal; 2021-08-04)
PROC: B4101ZZ Fluoroscopy of Abdominal Aorta using Low Osmolar Contrast (ICD-10-PCS; principal; 2021-08-04)
PROC: B2151ZZ Fluoroscopy of Left Heart using Low Osmolar Contrast (ICD-10-PCS; principal; 2021-08-04)
PROC: B2111ZZ Fluoroscopy of Multiple Coronary Arteries using Low Osmolar Contrast (ICD-10-PCS; principal; 2021-08-04)
PROC: B41F1ZZ Fluoroscopy of Right Lower Extremity Arteries using Low Osmolar Contrast (ICD-10-PCS; principal; 2021-08-04)
PROC: 02100Z9 Bypass Coronary Artery, One Artery from Left Internal Mammary, Open Approach (ICD-10-PCS; 2021-08-07)
PROC: 04HY32Z Insertion of Monitoring Device into Lower Artery, Percutaneous Approach (ICD-10-PCS; 2021-08-07)
PROC: 30233R1 Transfusion of Nonautologous Platelets into Peripheral Vein, Percutaneous Approach (ICD-10-PCS; 2021-08-07)
PROC: 021209W Bypass Coronary Artery, Three Arteries from Aorta with Autologous Venous Tissue, Open Approach (ICD-10-PCS; 2021-08-07)
PROC: 5A1221Z Performance of Cardiac Output, Continuous (ICD-10-PCS; 2021-08-07)
PROC: 5A0935A Assistance with Respiratory Ventilation, Less than 24 Consecutive Hours, High Flow/Velocity Cannula (ICD-10-PCS; 2021-08-07)
PROC: 06BQ4ZZ Excision of Left Saphenous Vein, Percutaneous Endoscopic Approach (ICD-10-PCS; 2021-08-07)
PROC: 5A0935A Assistance with Respiratory Ventilation, Less than 24 Consecutive Hours, High Flow/Velocity Cannula (ICD-10-PCS; 2021-08-08)
PROC: 5A0935A Assistance with Respiratory Ventilation, Less than 24 Consecutive Hours, High Flow/Velocity Cannula (ICD-10-PCS; 2021-08-09)
PROC: 05HA33Z Insertion of Infusion Device into Left Brachial Vein, Percutaneous Approach (ICD-10-PCS; 2021-08-10)
DX: I25.119 Atherosclerotic heart disease of native coronary artery with unspecified angina pectoris (principal); I21.4 Non-ST elevation (NSTEMI) myocardial infarction; N40.0 Benign prostatic hyperplasia without lower urinary tract symptoms; M19.90 Unspecified osteoarthritis, unspecified site; K21.9 Gastro-esophageal reflux disease without esophagitis; Z20.822 Contact with and (suspected) exposure to COVID-19; I10 Essential (primary) hypertension; E78.5 Hyperlipidemia, unspecified; F41.9 Anxiety disorder, unspecified; G25.81 Restless legs syndrome; I25.5 Ischemic cardiomyopathy; E78.00 Pure hypercholesterolemia, unspecified; I48.91 Unspecified atrial fibrillation; Z79.899 Other long term (current) drug therapy; Z79.82 Long term (current) use of aspirin; Z82.49 Family history of ischemic heart disease and other diseases of the circulatory system; Z87.891 Personal history of nicotine dependence
CPT/HCPCS: 10078; 10081; 10797; 47000; 47001; 47002; 47297; 48889; 50010; 50011; 50249; 50668; 51301; 52259; 52287; 53327; 53358; 54118; 56455; 56524; 56525; 56526; 56527; 56528; 56531; 56534; 56668; 56719; 56760; 56898; 57093; 57167; 58585; 58856; 58901; 58918; 62110; 62950; 65002; 65003; 65020; 65090; 65120; 83006

== ENCOUNTER → 2021-09-10 | Outpatient (CLI) | payer OTHER ==
[~2021-09-10] MED LIST changes: +BAYER CHEWABLE81 MG PO; +CARVEDILOL3.125 MG PO; +CRESTOR20 MG PO; +DICLOFENAC SOD50 MG PO; +FERREX 150 PLU1 EAC1 PO; +FLEXERIL PO; +FLOMAX0.4 MG PO; +PACERONE 200 M200 M1 PO; +ROPINIROLE HCL0.5 MG PO; +TESTOSTERO30 MG/1.5 BUCCAL; +XANAX 0.25 MG0.25 MG PO
== END ==
LOC: SJCVC 12:45
PROVIDERS: ATTEND Internal Medicine Cardiovascular Disease
DX: R94.31 Abnormal electrocardiogram [ECG] [EKG] (principal); I25.709 Atherosclerosis of coronary artery bypass graft(s), unspecified, with unspecified angina pectoris; I10 Essential (primary) hypertension; E78.00 Pure hypercholesterolemia, unspecified; I25.5 Ischemic cardiomyopathy; I48.91 Unspecified atrial fibrillation; K21.9 Gastro-esophageal reflux disease without esophagitis; E78.5 Hyperlipidemia, unspecified; Z95.1 Presence of aortocoronary bypass graft; Z87.891 Personal history of nicotine dependence; Z79.82 Long term (current) use of aspirin; Z79.899 Other long term (current) drug therapy; Z88.8 Allergy status to other drugs, medicaments and biological substances; Z82.49 Family history of ischemic heart disease and other diseases of the circulatory system